=== PATIENT | male | born 1975 | race Caucasian/White ===

== ENCOUNTER 2021-11-03 12:30 | Outpatient (RCR) | payer OTHER, SELFPAY ==
--- NOTE | 2021-09-18 15:17 | HP.PTEVAL_ITS ---
Patient's Visit Information HEMANT COTTER is a 46 year old M referred to Physical Therapy by ALDO MCCORMICK with a diagnosis of LBP. Date of Evaluation: 09/18/21 Physical Therapist: Kyleigh Martinez, PT, Cert MDT - Visit Plan Frequency: 2-3x /Week Duration: 4-6 Weeks Plan: START VERY SLOW. (MULTIPLE MEDICAL PROBLEMS - SEE PMH). AQUATIC THERAPY FOR BACK PAIN RELIEF, POSTURE CORRECTION/STRENGTHENING. INSTRUCTION IN APPROPRIATE BODY MECHANICS AND ACTIVITY MODIFICATIONS. DLS STARTING WITH A NEUTRAL SPINE PROGRESSING ROM TOLERATED. LILY LE ROM, STRETCHING AND STRENGTHENING TOLERATED. HEP INSTRUCTION. - Subjective Work/Leisure: UNEMPLOYEED. 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 Disability: YES. Present symptoms: LOW BACK PAIN. ALSO HAS LE CONDITIONS - PMH BELOW. Present since: 2003. Pain Scale: WORST 9/10, LEAST 5/10. Currently: 8/10. Commenced as a result of: BOMB. Worse: SITTING, STANDING, INACTIVITY/NOT WORKING OUT, DRIVING, EVEN DOING DISHES. Better: WORKING OUT 4 DAYS A WEEK. GABAPENTIN AND TYLONOL. Disturbed sleep: YES. Previous history/Previous treatment: PHYSICAL THERAPY - [facility], NO BACK SURGERY. NO SPINAL INJECTIONS. H/O CHIROPRACTIC WITH LAST VISIT BEING ABOUT 2 MONTHS AGO AND ONLY ABOUT 5 VISITS. SOME REMOTE CHIROPRACTIC TOO. PT [place] [facility] TOO. HOME EX. Coughing/sneezing/straining: POSITIVE. Gait: USES CANE PRETTY MUCH ALL THE TIME. PATIENT REPORTS LIMITED GAIT DUE TO SHLD PAIN, BACK PAIN AND KNEE PAIN/STIFFNESS. BOWEL OR BLADDER DYSFUNCTION: NO. Accidents: 2003. Unexplained weight loss: NO. Imaging: NONE RECENT. PATIENT REPORTS THAT HE WAS TOLD THAT SOME OF HIS DISCS HAVE SMALL TEARS IN THEM AND HE HAS ARTHRITIS AND SCOLIOSIS. PMHRecent major surgery: OPEN HEART SX 2015, 3 HERNIA REPAIRS, L FOOT SX - BENIGH TUMOR AND STARTING TO GROW BACK, (DISABILITY RATING FOR: KNEE CONDITION, PARALYSIS OF ALL RADICULAR NERVE GROUPS, ARTHRITIS, LIMITED KNEE FLEXION, LUMBOSACRAL STRAIN, HYPERTENSIVE VASCULAR DZ, DZ'S OF KERATINIZATION, LIMITED MOTION FINGER). OTHER: CURRENT EX PROGRAM: LATERAL PULL DOWN MACHINE AT HOME AND LIGHT SHRUGS. PLANET FITNESS: SEATED TRICEP DIP, SEATED BENCH PRESS, TRICEP PULL DOWNS, SEATED BICEP CURL. NO LEG MACHINES. NO TREADMILL OR BIKE. REPORTS HE FEELS A LOT BETTER WHEN HE DOES THESE EX'S. HAS GOOD DAYS AND BAD DAYS WITH PAIN. - Objective Sitting/Standing Posture: POOR. REDUCED LUMBAR LORDOSIS. SCOLIOSIS. Active Correction of posture: WORSE. Other Observations: INDEP GAIT INTO PT WITH STRAIGHT CANE, VERY SLOW CADANCE AND NO LOB. MILD INCREASED TRUNK FLEXION. CARRYING GYM BAG. GAIT AND TRANSFERS ARE SLOW AND GUARDED. VERY LITTLE TRUNK ROM OBSERVED THROUGHOUT SESSION. Motor deficit: LILY LE STRENGTH GROSSLY 4- TO 4/5 WITH MMT'ING MID-RANGE. Sensory deficit: LILY LE LIGHT TOUCH SENSATION IS GROSSLY INTACT AND SYMMETRICAL. ROM deficit: TIGHT LILY LE HIP FLEXORS, HS'S AND GASTROC SOLEUS COMPLEX'S. SEATED ACTIVE KNEE ROM GROSSLY FULL EXTENSION TO 95 DEG FLEX RIGHT AND 100 DEG FLEXION LEFT. ROM TESTING A BIT LIMITED DUE TO PATIENT PREFERRING TO HAVE KNEE ROM TESTED IN SITTING VS LYING DUE TO HIGH LEVEL OF BACK PAIN TODAY UPON ARRIVAL. Dural Signs: NEGATIVE LILY LE'S. Lumbar mvmt loss: flex - NORMA. ext - NORMA. R SG - NORMA. L SG - NORMA. PATIENT C/O INCREASED BACK/HIP PAIN WITH LUMBAR ROM TESTING ALL PLANES. HE DEMO'S JUST A VERY SMALL ROM IN HIS BACK ALL PLANES AND YELLED OUT WHEN TRYING TO STAND UP STRAIGHT. Core strength: POOR. Palpation: LILY LOW BACK, HIP AND BUTTOCK TENDERNESS LEFT > RIGHT WITH LIGHT PALPATION. - Balance/Special Test Scores Oswestry Low Back Score: 37 - Goals Goal 1:: DECREASE C/O LOW BACK PAIN. Goal Time Frame: 4-6 Weeks Goal 2:: IMPROVE PERSONAL CARE, LIFTING, WALKING, SITTING, STANDING, SLEEP, SOCIAL LIFE, TRAVEL AND WORK/HOMEMAKING FUNCTION. Goal Time Frame: 4-6 Weeks Goal 3:: INSTRUCT IN PROPHYLAXIS Goal Time Frame: 4-6 Weeks - Anticipated Interventions Patient/Client Instruction: Educate patient on: Condition, Plan of Care, Risk Factors For the Purpose of:: To improve self management Therapeutic Exercise to Include: Strength training, Body mechanics, Postural training, Flexibilty training, Gait and locomotor training, Neuromotor development, In an aquatic setting, Active ROM, Dynamic Lumbar Stabilization For the Purpose of:: To decrease pain, To improve muscle performance and motor function, To increase tolerance to activity/condition/position, To improve ability of physical actions for home/community/work/leisure Thank you for the opportunity to evaluate your patient. For Medicare and Medicare HMO plans, please review the plan of care and approve it. It will need to be FAXED BACK to us at [phone] for Medicare purposes. For Medicare only, by signing this I certify the plan of care. Please let me know if there are questions or concerns regarding this plan of care. Physician Signature: Date:
--- NOTE | 2021-11-03 12:57 | HP.PTDCSUM ---
It has been my pleasure to treat HEMANT COTTER referred by ALDO MCCORMICK, with the diagnosis of LBP for a total of 14 visit(s). Discharge Date: 11/03/21 Please see the following information for a summary of their discharge status. Subjective: PATIENT REPORTS HE IS THE SAME. FOLLOW UP WITH DR. CARLSON 2 DAYS AGO. WAS REFERR[facility]. PATIENT REPORTS HE GETS THE SAME AMOUNT OF BENEFIT FROM [facility] AND [facility] BUT HE PREFERS [facility]. 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 Lumbar Spine Pain Intensity (Out of 10): 7 RLE Pain Intensity (Out of 10): 2 LLE Pain Intensity (Out of 10): 3 % Improvement: 0 Objective/Function: PATIENT WAS SEEN TODAY FOR RE-ASSESSMENT OF PROGRESS TOWARD THE SET PT GOALS AND THE NEED FOR FURTHER PHYSICAL THERAPY VS READINESS FOR DISCHARGE. UPON EXAM TODAY, THERE ARE NO SIGNIFICANT CHANGES SINCE INITIAL EVAL BUT HE IS INDEP WITH A WATER EX PROGRAM NOW. Goal 1:: DECREASE C/O LOW BACK PAIN. Goal Progress: Not Progressing Goal 2:: IMPROVE PERSONAL CARE, LIFTING, WALKING, SITTING, STANDING, SLEEP, SOCIAL LIFE, TRAVEL AND WORK/HOMEMAKING FUNCTION. Goal Progress: Not Progressing Goal 3:: INSTRUCT IN PROPHYLAXIS Goal Progress: Not Progressing Plan: D/C TO INDEP EX. PATIENT IS AGREEABLE. If there are questions or concerns regarding this patient's physical therapy, please feel free to call me at [phone]. Thank you for the referral of this patient. Sincerely, Kyleigh Martinez, PT, Cert MDT Balance/Gait/Functional tests - Balance/Special Test Scores Oswestry Low Back Score: 35
== END 2021-11-03 13:04 | disposition home or self-care (01) ==
LOC: PT 12:30
DX: M54.50 Low back pain, unspecified (principal)
CPT/HCPCS: 97113; 97162; 97164